=== PATIENT | female | born 2000 | race Caucasian/White ===

== ENCOUNTER 2022-09-23 04:12 | Inpatient (IN) | payer OTHER ==
[~2022-09-23] VITALS: Ht 172 cm; Wt 108.0 kg
[2022-09-23] MEDS ORDERED: PNV1TABL76 PO (05:59)
[2022-09-23] MEDS ORDERED: NALOXONE HCL 0.4 MG/ML 1ML VIAL IM PRN (06:00)
[2022-09-23] MEDS ORDERED: BUTORPHANOL TARTRATE 2 MG/ML VIAL IV PRN (06:00)
[2022-09-23] MEDS ORDERED: LIDOCAINE HCL 1% 20ML VIAL (Pyxis) INJ INFIL SCH (06:00)
[2022-09-23] MEDS ORDERED: METHYLERGONOVINE MALEATE 0.2 MG/ML IM PRN ×2 (06:00→19:45)
[2022-09-23] MEDS ORDERED: CARBOPROST TROMETHAMINE 250 MCG/ML AMPUL IM PRN (06:00)
[2022-09-23] MEDS: LACTATED RINGERS 1,000 ML IV SCH ×2 (06:02→16:34)
[2022-09-23 06:26] LABS: BASOPHILS % 0.4 % (0.0-2.0); EOSINOPHILS % 0.4 % (0.0-5.0); LYMPHOCYTES % 19.5 % (20.0-50.0); MEAN CORPUSCULAR HEMOGLOBIN 32.2 pg (28.0-32.0); MEAN CORPUSCULAR VOLUME 93.9 fL (81.0-99.0); MEAN PLATELET VOLUME 9.2 fl (7.4-10.4); NEUTROPHILS % 74.7 % (40.0-76.0); PLATELET 189 x1000/uL (130-400); RED BLOOD CELL COUNT 4.05 mill/uL (4.2-5.4); RED CELL DISTRIBUTION WIDTH 14.5 % (11.6-14.6)
[2022-09-23 07:04] LABS: CLARITY URINE CLEAR (CLEAR); COLOR URINE YELLOW (YELLOW); KETONES URINE NEGATIVE (NEGATIVE); LEUKOCYTE ESTERASE URINE TRACE (NEGATIVE); NITRITE URINE NEGATIVE (NEGATIVE); OCCULT BLOOD URINE 2+ (NEGATIVE); PROTEIN URINE NEGATIVE (NEGATIVE); UROBILINOGEN URINE 0.2 E.U./dL (0.2-1.0)
[2022-09-23 07:15] LABS: INR 0.9; PARTIAL THROMBOPLASTIN TIME 28.4 sec (23.4-31.0); PROTHROMBIN TIME 9.8 sec (9.6-11.0)
[2022-09-23 07:26] LABS: *AMPHETAMINES SCREEN URINE NEGATIVE (NEGATIVE); *BARBITURATES SCREEN URINE NEGATIVE (NEGATIVE); *BENZODIAZEPINES SCREEN URINE NEGATIVE (NEGATIVE); *COCAINE SCREEN URINE NEGATIVE (NEGATIVE); CANNABINOID URINE SCREEN NEGATIVE (NEGATIVE); METHADONE URINE SCREEN NEGATIVE (NEGATIVE); OPIATES URINE SCREEN NEGATIVE (NEGATIVE); PHENCYCLIDINE URINE SCREEN NEGATIVE (NEGATIVE)
[2022-09-23 07:34] LABS: HEPATITIS B SURFACE ANTIGEN NEGATIVE
[2022-09-23] MEDS: OXYTOCIN 30 UNITS/500ML NS PMX 500 ML IV SCH ×2 (08:34→18:48)
[2022-09-23] MEDS ORDERED: PENICILLIN G POTASSIUM 5 MMU in DEXT 5% WATER 100 ML IV SCH (12:00)
[2022-09-23] MEDS ORDERED: LACTATED RINGERS 1,000 ML IV SCH (14:00)
[2022-09-23] MEDS ORDERED: ROPIVACAINE HCL/PF EPIDURAL 200 ML EPI ONE (15:20)
[2022-09-23] MEDS ORDERED: PENICILLIN G POTASSIUM 2.5 MMU in DEXTROSE 5% WATER 50 ML IV SCH (16:00)
[2022-09-23] MEDS ORDERED: BISACODYL 10MG SUPP PR PRN (19:45)
[2022-09-23] MEDS ORDERED: RHO(D) IMMUNE GLOBULIN 300 MCG/SYR IM PRN (19:45)
[2022-09-23] MEDS ORDERED: BENZOCAINE/LANOLIN/ALOE VERA SPRAY TOP PRN (19:45)
[2022-09-23] MEDS ORDERED: ACETAMINOPHEN WITH CODEINE 300/30MG TABLET PO PRN (19:45)
[2022-09-23] MEDS ORDERED: LANOLIN OINT 7GM TUBE TOP PRN (19:45)
[2022-09-23] MEDS ORDERED: GLYCERIN/WITCH HAZEL LEAF MEDICATED PAD TOP PRN (19:45)
[2022-09-23] MEDS ORDERED: HEMORRHOIDAL SUPP PR PRN (19:45)
[2022-09-23] MEDS ORDERED: IBUPROFEN 400MG TABLET PO PRN (19:45)
[2022-09-23] MEDS ORDERED: DIPHENHYDRAMINE 25MG CAPSULE PO PRN (19:45)
[2022-09-23 20:20] VITALS: BP 126/69
[2022-09-23] MEDS: MAGNESIUM/ALUMINUM HYDROXIDE/SIMETHICONE 30ML UDC PO SCH (21:06)
[2022-09-23] MEDS: SIMETHICONE 80MG TABLET CHEW PO SCH (21:06)
[2022-09-23] MEDS: DOCUSATE SODIUM 100MG CAPSULE PO SCH (21:06)
[2022-09-23 21:30] VITALS: BP 122/70
[2022-09-24 04:00] VITALS: BP 92/49
[2022-09-24 07:14] LABS: BASOPHILS % 0.3 % (0.0-2.0); EOSINOPHILS % 0.3 % (0.0-5.0); HEMATOCRIT. 35.3 % (36.0-48.0); HEMOGLOBIN. 12.1 g/dL (12.0-16.0); LYMPHOCYTES % 14.6 % (20.0-50.0); MEAN CORPUSCULAR HEMOGLOBIN 32.1 pg (28.0-32.0); MEAN CORPUSCULAR VOLUME 93.4 fL (81.0-99.0); MEAN PLATELET VOLUME 9.2 fl (7.4-10.4); MONOCYTES % 6.8 % (2.0-8.0); PLATELET 179 x1000/uL (130-400); RED BLOOD CELL COUNT 3.78 mill/uL (4.2-5.4); RED CELL DISTRIBUTION WIDTH 14.4 % (11.6-14.6)
[2022-09-24 08:00] VITALS: BP 109/62
[2022-09-24] MEDS: SIMETHICONE 80MG TABLET CHEW PO SCH ×4 (08:00→21:19)
[2022-09-24] MEDS: PRENATAL VIT/FE FUMARATE/FA TABLET PO SCH (09:00)
[2022-09-24] MEDS: FERROUS SULFATE 325MG TABLET PO SCH ×3 (09:01→17:24)
[2022-09-24] MEDS: MAGNESIUM/ALUMINUM HYDROXIDE/SIMETHICONE 30ML UDC PO SCH ×4 (09:01→21:19)
[2022-09-24] MEDS: IBUPROFEN 800MG TABLET PO PRN (14:23)
[2022-09-24 15:37] VITALS: BP 105/58
[2022-09-24] MEDS: DOCUSATE SODIUM 100MG CAPSULE PO SCH (21:19)
[2022-09-24 22:00] VITALS: BP 114/63
[2022-09-25 05:55] VITALS: BP 94/70
[2022-09-25 07:30] VITALS: BP 100/60
[2022-09-25] MEDS: PRENATAL VIT/FE FUMARATE/FA TABLET PO SCH (08:15)
[2022-09-25] MEDS: MAGNESIUM/ALUMINUM HYDROXIDE/SIMETHICONE 30ML UDC PO SCH (08:15)
[2022-09-25] MEDS: SIMETHICONE 80MG TABLET CHEW PO SCH (08:15)
[2022-09-25] MEDS: FERROUS SULFATE 325MG TABLET PO SCH (08:15)
[2022-09-25] MEDS: IBUPROFEN 800MG TABLET PO PRN (08:21)
== END 2022-09-25 12:30 | disposition home or self-care (01) | DRG 560 ==
LOC: OBSVTOIN 04:12 → INTOOBSV 04:12 → 8 EST LDRP 04:12 → 8EST 20:20
PROVIDERS: ADMIT Obstetrics & Gynecology; ATTEND Obstetrics & Gynecology
PROC: 00HU33Z Insertion of Infusion Device into Spinal Canal, Percutaneous Approach (ICD-10-PCS; principal; 2022-09-23)
PROC: 10E0XZZ Delivery of Products of Conception, External Approach (ICD-10-PCS; 2022-09-23)
PROC: 3E0R3BZ Introduction of Anesthetic Agent into Spinal Canal, Percutaneous Approach (ICD-10-PCS; 2022-09-23)
DX: O80 Encounter for full-term uncomplicated delivery (principal); Z37.0 Single live birth; Z20.822 Contact with and (suspected) exposure to COVID-19; Z3A.40 40 weeks gestation of pregnancy
CPT/HCPCS: 36415; 76805; 76818; 80305; 81003; 85025; 86592; 86703; 86762; 86850; 86900; 87340; 87426; 99281; J2540; J2795; J7060; J7120; J2590